=== PATIENT | male | born 1935 | race Caucasian/White ===

== ENCOUNTER 2022-08-13 09:24 | Emergency (ER) | payer MEDICARE, MEDICAID ==
[~2022-08-13] VITALS: Ht 167.6 cm; Wt 90.0 kg
[2022-08-13 09:46] VITALS: BP 150/71
[2022-08-13] MEDS ORDERED: ACET-2708 MT (12:12)
[2022-08-13] MEDS ORDERED: KETOROLAC 30MG/ML VIAL IM ONE (12:15)
== END 2022-08-13 12:30 | disposition home or self-care (01) ==
LOC: ER 09:24
DX: S52.92XA Unspecified fracture of left forearm, initial encounter for closed fracture (principal); I10 Essential (primary) hypertension; W01.0XXA Fall on same level from slipping, tripping and stumbling without subsequent striking against object, initial encounter; Y93.89 Activity, other specified; Y92.9 Unspecified place or not applicable
CPT/HCPCS: 29105; 96372; 99283; J1885

== ENCOUNTER 2025-10-18 22:16 | Inpatient (IN) | payer MEDICARE, MEDICAID ==
[~2025-10-18] VITALS: Ht 172.7 cm; Wt 113.4 kg
[~2025-10-18 22:16] MED LIST: ACET-2708 MT; ETOMIDATE 2MG/ML 10ML VIAL IV ONE
[2025-10-18] MEDS: ETOMIDATE 2MG/ML 10ML VIAL IV ONE (22:22)
[2025-10-18] MEDS: ROCURONIUM BROMIDE 10MG/ML VIAL 5ML IV ONE (22:24)
[2025-10-18] MEDS ORDERED: FENTANYL 2500MCG/250ML PMX 250 ML IV SCH (22:30)
[2025-10-18 22:31] VITALS: PULSE 98; RESP 40; O2SAT 98
[2025-10-18] MEDS: NOREPINEPHRINE 8MG/250ML PMX 250 ML IV PRN (22:39)
[2025-10-18] MEDS: PROPOFOL 10MG/ML 100ML 100 ML IV SCH (22:51)
[2025-10-18] MEDS: FENTANYL 2500MCG/250ML PMX 250 ML IV PRN (22:53)
[2025-10-18 23:05] LABS: BG BASE EXCESS -2.5 mmol/L (-2.0-3.0); BG CARBOXYHEMOGLOBIN 0.7 % (0.5-1.5); BG DEOXYHEMOGLOBIN 0.1 % (0.0-5.0); BG FRACTION INSPIRED OXYGEN 100; BG HCO3 ACT 24.3 mmol/L (21.0-28.0); BG METHEMOGLOBIN 0.1 % (0.5-1.5); BG OXYGEN SATURATION 99.9 % (94.0-98.0); BG OXYHEMOGLOBIN 99.1 % (94.0-98.0); BG PCO2 49.6 mmHg (35.0-48.0); BG PEEP (cmH2O) 5.0 cmH2O; BG PH 7.308 (7.350-7.450); BG PO2 322.8 mmHg (83.0-108.0); BG SAMPLE SITE LEFT RADIAL; BG TIDAL VOLUME(mL) 475.0 mL; BG TOTAL HEMOGLOBIN 15.0 g/dL (13.5-17.5); BG VENT MODE VENT - AC; BG VENT RATE 22.0 set
[2025-10-18 23:20] LABS: BASOPHILS % 0.6 % (0.0-2.0); CREATININE 2.0 mg/dL (0.6-1.3); EOSINOPHILS % 5.9 % (0.0-5.0); HEMATOCRIT. 41.6 % (42.0-52.0); HEMOGLOBIN. 13.7 g/dL (14.0-18.0); LYMPHOCYTES % 19.2 % (20.0-50.0); MEAN PLATELET VOLUME 9.6 fl (7.4-10.4); MONOCYTES % 9.3 % (2.0-8.0); NEUTROPHILS % 65.0 % (40.0-76.0); PLATELET 164 x1000/uL (130-400); RED BLOOD CELL COUNT 4.06 mill/uL (4.7-6.1); RED CELL DISTRIBUTION WIDTH 13.8 % (11.6-14.6)
[2025-10-18 23:21] LABS: ETHANOL BLOOD < 10 mg/dL (<10); UREA NITROGEN BLOOD 17 mg/dL (9-23)
[2025-10-18] MEDS: CLOPIDOGREL 75MG TABLET PO ONE (23:30)
[2025-10-18] MEDS: ASPIRIN 81MG TABLET PO ONE (23:30)
[2025-10-19] VITALS (87 sets, daily range): BP systolic 75–173; BP diastolic 40–70; PULSE 70–101; RESP 17–38; TEMP 36.5–38.1; O2SAT 90–100
[2025-10-19] MEDS ORDERED: ONDANSETRON HCL 4MG/2ML INJ IV PRN ×2 (00:15→01:15)
[2025-10-19] MEDS: SODIUM CHLORIDE 0.9% (SEPSIS BOLUS) IV ONE (00:37)
[2025-10-19] MEDS: PIPERACILLIN/TAZO 3.375G/50ML 50 ML IV ONE (00:37)
[2025-10-19] MEDS ORDERED: MAGNESIUM/ALUMINUM HYDROXIDE/SIMETHICONE 30ML UDC PO PRN (01:15)
[2025-10-19] MEDS ORDERED: NOREPINEPHRINE 8 MG in DEXT 5% WATER 242 ML IV PRN (01:15)
[2025-10-19] MEDS ORDERED: DOCUSATE SODIUM 100MG CAPSULE PO PRN (01:15)
[2025-10-19] MEDS ORDERED: GUAIFENESIN 200MG/10ML SUGAR FREE UDC PO PRN (01:15)
[2025-10-19] MEDS: VANCOMYCIN 1G PREMIX 200 ML IV ONE (01:39)
[2025-10-19] MEDS ORDERED: DEXTROSE 50% WATER 50ML SYRINGE IV PRN ×2 (02:15→17:45)
[2025-10-19] MEDS ORDERED: CEFTRIAXONE 2GM/50ML 50 ML IV SCH (03:00)
[2025-10-19] MEDS: DEXT 5%/0.45% NACL 1000ML 1,000 ML IV SCH (03:15)
[2025-10-19] MEDS: DOXYCYCLINE 100MG/100ML 100 ML IV SCH (03:16)
[2025-10-19] MEDS: CEFTRIAXONE 2GM/50ML 50 ML IV SCH (03:17)
[2025-10-19] MEDS: MAGNESIUM 1 G PREMIX 100 ML IV NR (03:20)
[2025-10-19] MEDS ORDERED: BUDESONIDE 0.5MG/2ML NEB HHN SCH (05:45)
[2025-10-19] MEDS: BLOOD SUGAR DIAGNOSTIC STRIP TEST SCH (06:00)
[2025-10-19] MEDS: METHYLPREDNISOLONE SOD SUCC 40MG/ML (ACT-O-VIAL) IV SCH (06:33)
[2025-10-19] MEDS: IOHEXOL-350 100 ML BOTTLE ONE (07:14)
[2025-10-19] MEDS: PROPOFOL 10MG/ML 100ML 100 ML IV PRN (07:28)
[2025-10-19 07:34] LABS: TROPONIN I HIGH SENSITIVITY 16 ng/L (3.0-53)
[2025-10-19] MEDS: BUDESONIDE 0.5MG/2ML NEB HHN SCH (08:24)
[2025-10-19 08:30] LABS: CREATINE KINASE MB FRACTION 0.6 ng/mL (0.5-3.6); PHOSPHORUS 3.2 mg/dL (2.5-4.9)
[2025-10-19 08:33] LABS: FOLIC ACID (FOLATE) SERUM 3.75 ng/mL (>5.38)
[2025-10-19 08:34] LABS: VITAMIN B12 SERUM 224 pg/mL (211-911)
[2025-10-19] MEDS: ENOXAPARIN 30MG/0.3ML SYR SUBCUT SCH (08:45)
[2025-10-19] MEDS: PANTOPRAZOLE SODIUM 40 MG/VIAL IV SCH (08:45)
[2025-10-19] MEDS: ASPIRIN 81MG TABLET PO SCH (08:46)
[2025-10-19] MEDS ORDERED: IPRA3AMP9 HHN (09:57)
[2025-10-19 10:03] LABS: INR 1.0
[2025-10-19] MEDS ORDERED: AMLO5TAB88 PO (10:33)
[2025-10-19] MEDS ORDERED: ASPI-1406 PO (10:33)
[2025-10-19] MEDS ORDERED: ICOS1CAP MT (10:33)
[2025-10-19] MEDS ORDERED: DIPH25TA23 MT (10:33)
[2025-10-19] MEDS ORDERED: TAMS-54 MT (10:33)
[2025-10-19] MEDS ORDERED: ALBU90AE INH (10:33)
[2025-10-19 12:43] LABS: CLARITY URINE CLEAR (CLEAR); COLOR URINE YELLOW (YELLOW); GLUCOSE URINE NEGATIVE (NEGATIVE); KETONES URINE NEGATIVE (NEGATIVE); LEUKOCYTE ESTERASE URINE 1+ (NEGATIVE); NITRITE URINE NEGATIVE (NEGATIVE); OCCULT BLOOD URINE 2+ (NEGATIVE); PH URINE 5.5 (4.5-8.0); PROTEIN URINE TRACE (NEGATIVE); SPECIFIC GRAVITY URINE 1.040 (1.005-1.030); UROBILINOGEN URINE 1.0 E.U./dL (0.2-1.0)
[2025-10-19 13:01] LABS: *AMPHETAMINES SCREEN URINE NEGATIVE (NEGATIVE)
[2025-10-19 13:02] LABS: *BARBITURATES SCREEN URINE NEGATIVE (NEGATIVE); *BENZODIAZEPINES SCREEN URINE NEGATIVE (NEGATIVE); *COCAINE SCREEN URINE NEGATIVE (NEGATIVE); CANNABINOID URINE SCREEN NEGATIVE (NEGATIVE); ECSTASY MDMA SCREEN URINE NEGATIVE (NEGATIVE); METHADONE URINE SCREEN NEGATIVE (NEGATIVE); OPIATES URINE SCREEN NEGATIVE (NEGATIVE); PHENCYCLIDINE URINE SCREEN NEGATIVE (NEGATIVE)
[2025-10-19 13:24] LABS: COARSE GRANULAR CASTS URINE 0-5 /lpf; HYALINE CASTS URINE 0-5 /lpf
[2025-10-19 13:25] LABS: WBC URINE 25-50 /hpf (0-2)
[2025-10-19 13:26] LABS: BACTERIA URINE 4+; RBC URINE 50-100 /hpf (0-2); SQUAMOUS EPITHELIAL CELL URINE FEW /lpf (RARE/1+)
[2025-10-19] MEDS: NOREPINEPHRINE 8MG/250ML PMX 250 ML IV PRN (13:39)
[2025-10-19] MEDS: LACTATED RINGERS 500 ML IV ONE ×2 (13:52→18:05)
[2025-10-19] MEDS: AZITHROMYCIN 500MG/250ML 250 ML IV SCH (16:14)
[2025-10-19] MEDS: FOLIC ACID 1 MG in SODIUM CHLORIDE 0.9% 500 ML IV ONE (16:14)
[2025-10-19 17:30] LABS: TROPONIN I HIGH SENSITIVITY 9 ng/L (3.0-53)
[2025-10-19 17:31] LABS: CREATININE 2.5 mg/dL (0.6-1.3)
[2025-10-19 17:32] LABS: CREATINE KINASE MB FRACTION 0.8 ng/mL (0.5-3.6); UREA NITROGEN BLOOD 19 mg/dL (9-23)
[2025-10-19 17:33] LABS: ASPARTATE AMINOTRANSFERASE 19 IU/L (<34)
[2025-10-19 17:34] LABS: BILIRUBIN DIRECT 0.7 mg/dL (<=3.0); BILIRUBIN TOTAL 1.1 mg/dL (0.1-1.0); PROTEIN TOTAL 6.0 g/dL (6.0-8.3)
[2025-10-19] MEDS ORDERED: DOXYCYCLINE 100MG/100ML 100 ML IV SCH (18:00)
[2025-10-19] MEDS: INSULIN LISPRO 100 UNITS/ML SUBCUT SCH (18:01)
[2025-10-19] MEDS: ACETAMINOPHEN 325MG TABLET PO PRN (20:15)
[2025-10-20] VITALS (99 sets, daily range): BP systolic 72–136; BP diastolic 37–69; PULSE 64–89; RESP 18–30; TEMP 36.7–37.4; O2SAT 94–100
[2025-10-20] MEDS: INSULIN LISPRO 100 UNITS/ML SUBCUT SCH (00:10)
[2025-10-20] MEDS: CEFTRIAXONE 2GM/50ML 50 ML IV SCH (00:10)
[2025-10-20 08:03] LABS: HEMATOCRIT. 39.8 % (42.0-52.0); HEMOGLOBIN. 13.2 g/dL (14.0-18.0); MEAN PLATELET VOLUME 10.0 fl (7.4-10.4); PLATELET 191 x1000/uL (130-400); RED BLOOD CELL COUNT 3.89 mill/uL (4.7-6.1); RED CELL DISTRIBUTION WIDTH 14.3 % (11.6-14.6)
[2025-10-20 08:22] LABS: T4 FREE 1.36 ng/dL (0.89-1.76)
[2025-10-20 08:25] LABS: CREATININE 2.2 mg/dL (0.6-1.3); TRIGLYCERIDE 94 mg/dL (0-150); UREA NITROGEN BLOOD 18 mg/dL (9-23)
[2025-10-20 08:26] LABS: LDL CHOLESTEROL 58 mg/dL (5-100)
[2025-10-20 08:30] LABS: ASPARTATE AMINOTRANSFERASE 21 IU/L (<34); BILIRUBIN DIRECT 0.4 mg/dL (<=3.0); BILIRUBIN TOTAL 0.6 mg/dL (0.1-1.0); PROTEIN TOTAL 5.7 g/dL (6.0-8.3)
[2025-10-20] MEDS: FOLIC ACID 1MG TABLET PO SCH (08:56)
[2025-10-20 10:07] LABS: BG BASE EXCESS -6.4 mmol/L (-2.0-3.0); BG CARBOXYHEMOGLOBIN 1.3 % (0.5-1.5); BG DEOXYHEMOGLOBIN 6.5 % (0.0-5.0); BG FRACTION INSPIRED OXYGEN 40; BG HCO3 ACT 19.9 mmol/L (21.0-28.0); BG METHEMOGLOBIN 0.2 % (0.5-1.5); BG OXYGEN SATURATION 93.4 % (94.0-98.0); BG OXYHEMOGLOBIN 92.0 % (94.0-98.0); BG PCO2 42.6 mmHg (35.0-48.0); BG PEEP (cmH2O) 5.0 cmH2O; BG PH 7.288 (7.350-7.450); BG PO2 63.7 mmHg (83.0-108.0); BG SAMPLE SITE RIGHT RADIAL; BG TIDAL VOLUME(mL) 475.0 mL; BG TOTAL HEMOGLOBIN 14.3 g/dL (13.5-17.5); BG VENT MODE VENT - AC; BG VENT RATE 20.0 set
[2025-10-20] MEDS: SODIUM BICARBONATE 8.4% 50MEQ/50ML SYR IV SCH (13:13)
[2025-10-20] MEDS ORDERED: DEXT 5%/LACTATED RINGERS 1,000 ML IV SCH (15:45)
[2025-10-20] MEDS: DEXT 5%/0.9% NACL 1,000 ML IV SCH (16:00)
[2025-10-20] MEDS ORDERED: VASOPRESSIN 20 UNIT in SODIUM CHLORIDE 0.9% 99 ML IV PRN (16:00)
[2025-10-20] MEDS: ALBUTEROL (0.5%) 2.5MG/0.5ML NEB HHN SCH (16:00)
[2025-10-20] MEDS: ALBUMIN HUMAN 12.5G/250ML (5%) IV SCH (17:09)
[2025-10-20] MEDS: SODIUM ZIRCONIUM CYCLOSILICATE 10GM/PACKET PO SCH (17:10)
[2025-10-20 17:29] LABS: BAND% 12.0 % (1.0-6.0); LYMPHOCYTES % MANUAL 4.0 % (20.0-50.0); MONOCYTES % MANUAL 3.0 % (2.0-8.0); NEUTROPHILS % MANUAL 81.0 % (45.0-75.0); PLATELET ESTIMATE NORMAL
[2025-10-20] MEDS: CALCIUM GLUCONATE 100MG/ML 10ML VIAL IV SCH (18:00)
[2025-10-20] MEDS: CEFEPIME 2GM/100ML 100 ML IV SCH (20:18)
[2025-10-20] MEDS: LACTULOSE 20G/30ML UDC PO SCH (21:58)
[2025-10-20] MEDS: PROPOFOL 10MG/ML 100ML 100 ML IV PRN (22:07)
[2025-10-21] VITALS (101 sets, daily range): BP systolic 77–126; BP diastolic 49–77; PULSE 51–112; RESP 18–27; TEMP 36.5–37.3; O2SAT 95–100
[2025-10-21] MEDS ORDERED: DEXMEDETOMIDINE 100 ML IV PRN (04:00)
[2025-10-21] MEDS: PROPOFOL 10MG/ML 100ML 100 ML IV PRN (05:47)
[2025-10-21 06:24] LABS: HEMATOCRIT. 35.0 % (42.0-52.0); HEMOGLOBIN. 11.2 g/dL (14.0-18.0); MEAN PLATELET VOLUME 9.7 fl (7.4-10.4); PLATELET 151 x1000/uL (130-400); RED BLOOD CELL COUNT 3.33 mill/uL (4.7-6.1); RED CELL DISTRIBUTION WIDTH 14.9 % (11.6-14.6)
[2025-10-21 06:55] LABS: CREATININE 1.7 mg/dL (0.6-1.3); TRIGLYCERIDE 144 mg/dL (0-150); TROPONIN I HIGH SENSITIVITY 6 ng/L (3.0-53); UREA NITROGEN BLOOD 24 mg/dL (9-23)
[2025-10-21 06:57] LABS: PHOSPHORUS 3.0 mg/dL (2.5-4.9)
[2025-10-21 10:09] LABS: BG BASE EXCESS -6.5 mmol/L (-2.0-3.0); BG CARBOXYHEMOGLOBIN 0.5 % (0.5-1.5); BG DEOXYHEMOGLOBIN 3.8 % (0.0-5.0); BG FRACTION INSPIRED OXYGEN 35; BG HCO3 ACT 19.3 mmol/L (21.0-28.0); BG METHEMOGLOBIN 0.3 % (0.5-1.5); BG OXYGEN SATURATION 96.2 % (94.0-98.0); BG OXYHEMOGLOBIN 95.4 % (94.0-98.0); BG PCO2 39.4 mmHg (35.0-48.0); BG PEEP (cmH2O) 5.0 cmH2O; BG PH 7.308 (7.350-7.450); BG PO2 82.3 mmHg (83.0-108.0); BG SAMPLE SITE RIGHT RADIAL; BG TIDAL VOLUME(mL) 425.0 mL; BG TOTAL HEMOGLOBIN 12.4 g/dL (13.5-17.5); BG VENT MODE VENT - AC; BG VENT RATE 20.0 set
[2025-10-21] MEDS: FUROSEMIDE 40MG/4ML VIAL IVP SCH (11:07)
[2025-10-21 11:41] LABS: BAND% 23.0 % (1.0-6.0); LYMPHOCYTES % MANUAL 5.0 % (20.0-50.0); MONOCYTES % MANUAL 3.0 % (2.0-8.0); NEUTROPHILS % MANUAL 69.0 % (45.0-75.0)
[2025-10-21 11:42] LABS: PLATELET ESTIMATE NORMAL
[2025-10-21] MEDS ORDERED: IPRATROPIUM/ALBUTEROL 0.5-3(2.5)MG/3ML NEB HHN PRN (13:15)
[2025-10-21] MEDS: IPRATROPIUM/ALBUTEROL 0.5-3(2.5)MG/3ML NEB HHN SCH (20:36)
[2025-10-22] VITALS (86 sets, daily range): BP systolic 109–165; BP diastolic 54–95; PULSE 70–109; RESP 19–29; TEMP 36.8–38; O2SAT 91–100
[2025-10-22 06:25] LABS: HEMATOCRIT. 37.2 % (42.0-52.0); HEMOGLOBIN. 11.6 g/dL (14.0-18.0); MEAN PLATELET VOLUME 10.3 fl (7.4-10.4); PLATELET 167 x1000/uL (130-400); RED BLOOD CELL COUNT 3.50 mill/uL (4.7-6.1); RED CELL DISTRIBUTION WIDTH 15.1 % (11.6-14.6)
[2025-10-22 06:41] LABS: CREATININE 1.5 mg/dL (0.6-1.3); UREA NITROGEN BLOOD 25.0 mg/dL (9-23)
[2025-10-22 10:08] LABS: BG BASE EXCESS -1.9 mmol/L (-2.0-3.0); BG CARBOXYHEMOGLOBIN 0.8 % (0.5-1.5); BG DEOXYHEMOGLOBIN 5.7 % (0.0-5.0); BG FRACTION INSPIRED OXYGEN 35; BG HCO3 ACT 23.5 mmol/L (21.0-28.0); BG METHEMOGLOBIN 0.3 % (0.5-1.5); BG OXYGEN SATURATION 94.2 % (94.0-98.0); BG OXYHEMOGLOBIN 93.2 % (94.0-98.0); BG PCO2 42.2 mmHg (35.0-48.0); BG PEEP (cmH2O) 5.0 cmH2O; BG PH 7.363 (7.350-7.450); BG PO2 67.6 mmHg (83.0-108.0); BG SAMPLE SITE RIGHT RADIAL; BG TIDAL VOLUME(mL) 475.0 mL; BG TOTAL HEMOGLOBIN 12.5 g/dL (13.5-17.5); BG VENT MODE VENT - AC; BG VENT RATE 22.0 set
[2025-10-22] MEDS: CEFEPIME 2GM/100ML 100 ML IV SCH (16:38)
[2025-10-22] MEDS: SODIUM CHLORIDE 0.45% 1,000 ML IV SCH (16:41)
[2025-10-22 17:27] LABS: LYMPHOCYTES % MANUAL 3.0 % (20.0-50.0); MONOCYTES % MANUAL 4.0 % (2.0-8.0); NEUTROPHILS % MANUAL 93.0 % (45.0-75.0); PLATELET ESTIMATE NORMAL
[2025-10-23] VITALS (95 sets, daily range): BP systolic 102–170; BP diastolic 57–91; PULSE 65–112; RESP 16–38; TEMP 36.2–37.2; O2SAT 91–100
[2025-10-23 07:25] LABS: BASOPHILS % 0.1 % (0.0-2.0); EOSINOPHILS % 0.0 % (0.0-5.0); HEMATOCRIT. 37.9 % (42.0-52.0); HEMOGLOBIN. 12.3 g/dL (14.0-18.0); LYMPHOCYTES % 8.3 % (20.0-50.0); MEAN PLATELET VOLUME 9.9 fl (7.4-10.4); MONOCYTES % 7.6 % (2.0-8.0); NEUTROPHILS % 84.0 % (40.0-76.0); PLATELET 160 x1000/uL (130-400); RED BLOOD CELL COUNT 3.69 mill/uL (4.7-6.1); RED CELL DISTRIBUTION WIDTH 13.7 % (11.6-14.6)
[2025-10-23 07:32] LABS: CREATININE 1.3 mg/dL (0.6-1.3)
[2025-10-23 07:33] LABS: UREA NITROGEN BLOOD 25.0 mg/dL (9-23)
[2025-10-23] MEDS: METHYLPREDNISOLONE SOD SUCC 40MG/ML (ACT-O-VIAL) IV SCH (08:29)
[2025-10-23 09:27] LABS: BG BASE EXCESS -0.2 mmol/L (-2.0-3.0); BG CARBOXYHEMOGLOBIN 1.2 % (0.5-1.5); BG DEOXYHEMOGLOBIN 4.6 % (0.0-5.0); BG FRACTION INSPIRED OXYGEN 35; BG HCO3 ACT 24.9 mmol/L (21.0-28.0); BG METHEMOGLOBIN 0.0 % (0.5-1.5); BG OXYGEN SATURATION 95.3 % (94.0-98.0); BG OXYHEMOGLOBIN 94.2 % (94.0-98.0); BG PCO2 42.5 mmHg (35.0-48.0); BG PEEP (cmH2O) 5.0 cmH2O; BG PH 7.386 (7.350-7.450); BG PO2 73.2 mmHg (83.0-108.0); BG SAMPLE SITE RIGHT RADIAL; BG TIDAL VOLUME(mL) 475.0 mL; BG TOTAL HEMOGLOBIN 12.3 g/dL (13.5-17.5); BG VENT MODE VENT - AC; BG VENT RATE 20.0 set
[2025-10-24] VITALS (71 sets, daily range): BP systolic 141–165; BP diastolic 64–84; PULSE 60–87; RESP 18–34; TEMP 36.7–37.2; O2SAT 96–100
[2025-10-24 07:07] LABS: HEMATOCRIT. 36.1 % (42.0-52.0); HEMOGLOBIN. 12.0 g/dL (14.0-18.0); MEAN PLATELET VOLUME 9.9 fl (7.4-10.4); PLATELET 149 x1000/uL (130-400); RED BLOOD CELL COUNT 3.55 mill/uL (4.7-6.1); RED CELL DISTRIBUTION WIDTH 13.8 % (11.6-14.6)
[2025-10-24 07:31] LABS: CREATININE 1.1 mg/dL (0.6-1.3)
[2025-10-24 07:32] LABS: UREA NITROGEN BLOOD 27 mg/dL (9-23)
[2025-10-24 09:26] LABS: BAND% 4.0 % (1.0-6.0); LYMPHOCYTES % MANUAL 15.0 % (20.0-50.0); MONOCYTES % MANUAL 5.0 % (2.0-8.0); NEUTROPHILS % MANUAL 76.0 % (45.0-75.0); PLATELET ESTIMATE NORMAL
[2025-10-24] MEDS: CLONIDINE 0.1MG TABLET PO PRN (12:12)
[2025-10-24] MEDS: APIXABAN 2.5 MG TABLET PO SCH (21:28)
[2025-10-24] MEDS: ATORVASTATIN CALCIUM 40MG TABLET PO SCH (21:28)
[2025-10-25] VITALS (73 sets, daily range): BP systolic 122–168; BP diastolic 55–84; PULSE 61–87; RESP 17–33; TEMP 37–38.3; O2SAT 95–100
[2025-10-25 07:03] LABS: HEMATOCRIT. 38.7 % (42.0-52.0); HEMOGLOBIN. 12.4 g/dL (14.0-18.0); MEAN PLATELET VOLUME 9.8 fl (7.4-10.4); PLATELET 161 x1000/uL (130-400); RED BLOOD CELL COUNT 3.76 mill/uL (4.7-6.1); RED CELL DISTRIBUTION WIDTH 13.7 % (11.6-14.6)
[2025-10-25 07:24] LABS: CREATININE 1.2 mg/dL (0.6-1.3)
[2025-10-25 07:25] LABS: LDL CHOLESTEROL 107.0 mg/dL (5-100); TRIGLYCERIDE 148.0 mg/dL (0-150); UREA NITROGEN BLOOD 25.0 mg/dL (9-23)
[2025-10-25] MEDS ORDERED: CLOPIDOGREL 75MG TABLET PO SCH (09:00)
[2025-10-25 09:10] LABS: BG BASE EXCESS 1.6 mmol/L (-2.0-3.0); BG CARBOXYHEMOGLOBIN 0.9 % (0.5-1.5); BG DEOXYHEMOGLOBIN 7.1 % (0.0-5.0); BG FRACTION INSPIRED OXYGEN 30; BG HCO3 ACT 26.9 mmol/L (21.0-28.0); BG METHEMOGLOBIN 0.0 % (0.5-1.5); BG OXYGEN SATURATION 92.8 % (94.0-98.0); BG OXYHEMOGLOBIN 92.0 % (94.0-98.0); BG PCO2 44.8 mmHg (35.0-48.0); BG PEEP (cmH2O) 5.0 cmH2O; BG PH 7.396 (7.350-7.450); BG PO2 64.1 mmHg (83.0-108.0); BG SAMPLE SITE RIGHT RADIAL; BG TIDAL VOLUME(mL) 475.0 mL; BG TOTAL HEMOGLOBIN 12.3 g/dL (13.5-17.5); BG VENT MODE VENT - SIMV; BG VENT RATE 12.0 set
[2025-10-25 12:36] LABS: BAND% 2.0 % (1.0-6.0); EOSINOPHILS % MANUAL 1.0 % (0.0-5.0); LYMPHOCYTES % MANUAL 15.0 % (20.0-50.0); MONOCYTES % MANUAL 10.0 % (2.0-8.0); NEUTROPHILS % MANUAL 72.0 % (45.0-75.0); NUCLEATED RED BLOOD CELLS 1 /100 WBC; PLATELET ESTIMATE NORMAL
[2025-10-26] VITALS (56 sets, daily range): BP systolic 131–162; BP diastolic 56–76; PULSE 67–86; RESP 16–31; TEMP 37.2–37.4; O2SAT 94–100
[2025-10-26 08:07] LABS: HEMATOCRIT. 41.7 % (42.0-52.0); HEMOGLOBIN. 13.7 g/dL (14.0-18.0); MEAN PLATELET VOLUME 10.0 fl (7.4-10.4); PLATELET 158 x1000/uL (130-400); RED BLOOD CELL COUNT 4.11 mill/uL (4.7-6.1); RED CELL DISTRIBUTION WIDTH 13.8 % (11.6-14.6)
[2025-10-26 08:16] LABS: CREATININE 1.1 mg/dL (0.6-1.3)
[2025-10-26 08:17] LABS: UREA NITROGEN BLOOD 33 mg/dL (9-23)
[2025-10-26] MEDS: RIFAXIMIN 550 MG TABLET PO SCH (11:17)
[2025-10-26] MEDS: SODIUM CHLORIDE 0.45% 1,000 ML IV SCH (11:18)
[2025-10-27] VITALS (72 sets, daily range): BP systolic 125–164; BP diastolic 53–81; PULSE 66–81; RESP 20–30; TEMP 37.1–37.5; O2SAT 91–100
[2025-10-27 06:47] LABS: HEMATOCRIT. 43.3 % (42.0-52.0); HEMOGLOBIN. 14.0 g/dL (14.0-18.0); MEAN PLATELET VOLUME 10.2 fl (7.4-10.4); PLATELET 159 x1000/uL (130-400); RED BLOOD CELL COUNT 4.22 mill/uL (4.7-6.1); RED CELL DISTRIBUTION WIDTH 13.6 % (11.6-14.6)
[2025-10-27 07:15] LABS: CREATININE 1.1 mg/dL (0.6-1.3); UREA NITROGEN BLOOD 24 mg/dL (9-23)
[2025-10-27 07:16] LABS: ASPARTATE AMINOTRANSFERASE 22 IU/L (<34); PROTEIN TOTAL 6.0 g/dL (6.0-8.3)
[2025-10-27 07:17] LABS: BILIRUBIN DIRECT 0.2 mg/dL (<=3.0)
[2025-10-27 07:18] LABS: BILIRUBIN TOTAL 0.7 mg/dL (0.1-1.0)
[2025-10-27 07:21] LABS: INR 1.0
[2025-10-27 07:51] LABS: HEPATITIS A AB IGM NEGATIVE (Negative)
[2025-10-27 07:52] LABS: HEPATITIS B CORE AB IGM NEGATIVE (Negative); HEPATITIS C AB NON REACTIVE (Neg) (Negative)
[2025-10-27 08:40] LABS: BG BASE EXCESS 1.6 mmol/L (-2.0-3.0); BG CARBOXYHEMOGLOBIN 1.0 % (0.5-1.5); BG DEOXYHEMOGLOBIN 5.9 % (0.0-5.0); BG FRACTION INSPIRED OXYGEN 30; BG HCO3 ACT 25.3 mmol/L (21.0-28.0); BG METHEMOGLOBIN 0.3 % (0.5-1.5); BG OXYGEN SATURATION 94.0 % (94.0-98.0); BG OXYHEMOGLOBIN 92.8 % (94.0-98.0); BG PCO2 36.7 mmHg (35.0-48.0); BG PEEP (cmH2O) 5.0 cmH2O; BG PH 7.456 (7.350-7.450); BG PO2 65.6 mmHg (83.0-108.0); BG SAMPLE SITE LEFT RADIAL; BG TIDAL VOLUME(mL) 450.0 mL; BG TOTAL HEMOGLOBIN 14.4 g/dL (13.5-17.5); BG TOTAL RESPIRATORY RATE 25 b/min; BG VENT MODE VENT - SIMV; BG VENT RATE 10.0 set
[2025-10-27 10:37] LABS: BAND% 3.0 % (1.0-6.0); EOSINOPHILS % MANUAL 2.0 % (0.0-5.0); LYMPHOCYTES % MANUAL 10.0 % (20.0-50.0); METAMYELOCYTES % 1.0 % (0-0); MONOCYTES % MANUAL 10.0 % (2.0-8.0); NEUTROPHILS % MANUAL 74.0 % (45.0-75.0); PLATELET ESTIMATE NORMAL
[2025-10-27 16:16] LABS: BAND% 4.0 % (1.0-6.0); EOSINOPHILS % MANUAL 1.0 % (0.0-5.0); LYMPHOCYTES % MANUAL 14.0 % (20.0-50.0); METAMYELOCYTES % 1.0 % (0-0); MONOCYTES % MANUAL 14.0 % (2.0-8.0); MYELOCYTES % 1.0 % (0-0); NEUTROPHILS % MANUAL 65.0 % (45.0-75.0); PLATELET ESTIMATE NORMAL
[2025-10-27] MEDS ORDERED: PROPOFOL 10MG/ML 100ML 100 ML IV PRN (22:15)
[2025-10-28] VITALS (66 sets, daily range): BP systolic 112–176; BP diastolic 48–70; PULSE 62–87; RESP 16–29; TEMP 36.7–37.7; O2SAT 91–100
[2025-10-28] MEDS: ACETAMINOPHEN 325MG TABLET PO PRN (00:40)
[2025-10-28 06:34] LABS: BASOPHILS % 0.3 % (0.0-2.0); EOSINOPHILS % 2.9 % (0.0-5.0); HEMATOCRIT. 40.4 % (42.0-52.0); HEMOGLOBIN. 13.2 g/dL (14.0-18.0); LYMPHOCYTES % 7.6 % (20.0-50.0); MEAN PLATELET VOLUME 10.4 fl (7.4-10.4); MONOCYTES % 5.4 % (2.0-8.0); NEUTROPHILS % 83.8 % (40.0-76.0); PLATELET 183 x1000/uL (130-400); RED BLOOD CELL COUNT 3.98 mill/uL (4.7-6.1); RED CELL DISTRIBUTION WIDTH 13.8 % (11.6-14.6)
[2025-10-28 06:53] LABS: CREATININE 1.2 mg/dL (0.6-1.3); UREA NITROGEN BLOOD 24.0 mg/dL (9-23)
[2025-10-28] MEDS: LACTULOSE 20G/30ML UDC PO SCH ×2 (09:00→09:19)
[2025-10-28 10:23] LABS: BG BASE EXCESS 0.0 mmol/L (-2.0-3.0); BG CARBOXYHEMOGLOBIN 0.9 % (0.5-1.5); BG DEOXYHEMOGLOBIN 3.0 % (0.0-5.0); BG FRACTION INSPIRED OXYGEN 30; BG HCO3 ACT 24.6 mmol/L (21.0-28.0); BG METHEMOGLOBIN 0.3 % (0.5-1.5); BG OXYGEN SATURATION 97.0 % (94.0-98.0); BG OXYHEMOGLOBIN 95.8 % (94.0-98.0); BG PCO2 39.9 mmHg (35.0-48.0); BG PEEP (cmH2O) 5.0 cmH2O; BG PH 7.407 (7.350-7.450); BG PO2 86.5 mmHg (83.0-108.0); BG SAMPLE SITE RIGHT RADIAL; BG TIDAL VOLUME(mL) 450.0 mL; BG TOTAL HEMOGLOBIN 16.0 g/dL (13.5-17.5); BG TOTAL RESPIRATORY RATE 27 b/min; BG VENT MODE VENT - SIMV; BG VENT RATE 20.0 set
[2025-10-29] VITALS (102 sets, daily range): BP systolic 98–173; BP diastolic 47–68; PULSE 64–89; RESP 10–32; TEMP 36.5–38.2; O2SAT 84–100
[2025-10-29 07:08] LABS: HEMATOCRIT. 39.6 % (42.0-52.0); HEMOGLOBIN. 12.6 g/dL (14.0-18.0); MEAN PLATELET VOLUME 10.3 fl (7.4-10.4); PLATELET 163 x1000/uL (130-400); RED BLOOD CELL COUNT 3.83 mill/uL (4.7-6.1); RED CELL DISTRIBUTION WIDTH 14.1 % (11.6-14.6)
[2025-10-29 07:13] LABS: CREATININE 1.2 mg/dL (0.6-1.3); UREA NITROGEN BLOOD 22.0 mg/dL (9-23)
[2025-10-29] MEDS: ACETAMINOPHEN 1000MG/100ML 100 ML IV NR (10:37)
[2025-10-29] MEDS ORDERED: LIDOCAINE HCL/EPINEPHRINE 1%-EPI 1:100,000 20ML VIAL ONE (11:05)
[2025-10-29 11:52] LABS: BAND% 9.0 % (1.0-6.0); EOSINOPHILS % MANUAL 3.0 % (0.0-5.0); LYMPHOCYTES % MANUAL 3.0 % (20.0-50.0); MONOCYTES % MANUAL 3.0 % (2.0-8.0); NEUTROPHILS % MANUAL 82.0 % (45.0-75.0); PLATELET ESTIMATE NORMAL
[2025-10-30] VITALS (21 sets, daily range): BP systolic 107–127; BP diastolic 48–60; PULSE 64–96; RESP 15–36; TEMP 36.7–37.9; O2SAT 95–100
[2025-10-30 06:57] LABS: HEMATOCRIT. 37.9 % (42.0-52.0); HEMOGLOBIN. 12.4 g/dL (14.0-18.0); MEAN PLATELET VOLUME 10.4 fl (7.4-10.4); PLATELET 162 x1000/uL (130-400); RED BLOOD CELL COUNT 3.69 mill/uL (4.7-6.1); RED CELL DISTRIBUTION WIDTH 13.8 % (11.6-14.6)
[2025-10-30 07:18] LABS: CREATININE 1.4 mg/dL (0.6-1.3)
[2025-10-30 07:19] LABS: UREA NITROGEN BLOOD 23.0 mg/dL (9-23)
[2025-10-30] MEDS: CYANOCOBALAMIN 1000MCG TABLET NG SCH (09:45)
[2025-10-31] VITALS (22 sets, daily range): BP systolic 111–152; BP diastolic 47–130; PULSE 66–83; RESP 24–62; TEMP 36.5–38.3; O2SAT 94–99
[2025-10-31 04:34] LABS: INR 1.0
[2025-10-31 04:44] LABS: CREATININE 1.4 mg/dL (0.6-1.3)
[2025-10-31 04:45] LABS: UREA NITROGEN BLOOD 21 mg/dL (9-23)
[2025-10-31 04:47] LABS: PHOSPHORUS 2.0 mg/dL (2.5-4.9)
[2025-10-31 05:01] LABS: BASOPHILS % 0.2 % (0.0-2.0); EOSINOPHILS % 1.2 % (0.0-5.0); HEMATOCRIT. 36.1 % (42.0-52.0); HEMOGLOBIN. 11.7 g/dL (14.0-18.0); LYMPHOCYTES % 8.6 % (20.0-50.0); MEAN PLATELET VOLUME 10.6 fl (7.4-10.4); MONOCYTES % 9.0 % (2.0-8.0); NEUTROPHILS % 81.0 % (40.0-76.0); PLATELET 164 x1000/uL (130-400); RED BLOOD CELL COUNT 3.53 mill/uL (4.7-6.1); RED CELL DISTRIBUTION WIDTH 13.7 % (11.6-14.6)
[2025-10-31] MEDS ORDERED: PROPOFOL 200MG/20ML VIAL IV ONE (11:31)
[2025-10-31 15:20] LABS: EOSINOPHILS % MANUAL 1.0 % (0.0-5.0); LYMPHOCYTES % MANUAL 8.0 % (20.0-50.0); MONOCYTES % MANUAL 10.0 % (2.0-8.0); NEUTROPHILS % MANUAL 81.0 % (45.0-75.0); PLATELET ESTIMATE NORMAL
[2025-10-31] MEDS: SODIUM PHOSPHATE 15 MMOL in DEXT 5% WATER 245 ML IV SCH (17:00)
== END 2025-10-31 20:50 | DRG 4 ==
LOC: ER 22:16 → CVICU 10-19 00:22 → EDBEDREQ 10-19 00:25 → ENRESERV 10-19 01:39 → 5EST 10-30 00:11
PROVIDERS: ADMIT Hospitalist; ATTEND Hospitalist
PROC: 5A1955Z Respiratory Ventilation, Greater than 96 Consecutive Hours (ICD-10-PCS; principal; 2025-10-18)
PROC: 0BH17EZ Insertion of Endotracheal Airway into Trachea, Via Natural or Artificial Opening (ICD-10-PCS; 2025-10-18)
PROC: 0B110F4 Bypass Trachea to Cutaneous with Tracheostomy Device, Open Approach (ICD-10-PCS; 2025-10-29)
PROC: 0DH63UZ Insertion of Feeding Device into Stomach, Percutaneous Approach (ICD-10-PCS; 2025-10-31)
DX: A41.51 Sepsis due to Escherichia coli [E. coli] (principal); J69.0 Pneumonitis due to inhalation of food and vomit; R65.21 Severe sepsis with septic shock; J96.21 Acute and chronic respiratory failure with hypoxia; J96.22 Acute and chronic respiratory failure with hypercapnia; G93.41 Metabolic encephalopathy; I63.89 Other cerebral infarction; E72.20 Disorder of urea cycle metabolism, unspecified; D53.1 Other megaloblastic anemias, not elsewhere classified; Z99.11 Dependence on respirator [ventilator] status; N39.0 Urinary tract infection, site not specified; N17.9 Acute kidney failure, unspecified; I27.20 Pulmonary hypertension, unspecified; E11.65 Type 2 diabetes mellitus with hyperglycemia; K76.0 Fatty (change of) liver, not elsewhere classified; N18.9 Chronic kidney disease, unspecified; I12.9 Hypertensive chronic kidney disease with stage 1 through stage 4 chronic kidney disease, or unspecified chronic kidney disease; I36.1 Nonrheumatic tricuspid (valve) insufficiency; J44.9 Chronic obstructive pulmonary disease, unspecified; E87.29 Other acidosis; I10 Essential (primary) hypertension; E87.5 Hyperkalemia; I48.0 Paroxysmal atrial fibrillation; J84.10 Pulmonary fibrosis, unspecified; I49.1 Atrial premature depolarization; E53.8 Deficiency of other specified B group vitamins; K80.20 Calculus of gallbladder without cholecystitis without obstruction; R13.12 Dysphagia, oropharyngeal phase; R31.29 Other microscopic hematuria; R16.2 Hepatomegaly with splenomegaly, not elsewhere classified; R91.1 Solitary pulmonary nodule; E78.5 Hyperlipidemia, unspecified; E80.6 Other disorders of bilirubin metabolism; Z74.01 Bed confinement status; Z79.82 Long term (current) use of aspirin; Z86.16 Personal history of COVID-19; Z86.73 Personal history of transient ischemic attack (TIA), and cerebral infarction without residual deficits; Z87.01 Personal history of pneumonia (recurrent); Z87.891 Personal history of nicotine dependence
CPT/HCPCS: 31500; 31720; 36415; 36600; 70551; 71045; 71275; 76700; 80048; 80061; 80076; 80305; 80320; 81003; 82040; 82140; 82270; 82375; 82553; 82607; 82746; 82805; 82962; 83036; 83605; 83735; 83880; 84100; 84145; 84439; 84443; 84478; 84484; 85025; 85651; 86705; 86709; 87070; 87077; 87186; 87340; 92950; 93005; 93306; 93970; 94002; 94003; 94070; 94640; 94664; 98960; 99291; 99292; A4606; J0456; J0612; J0690; J0692; J0696; J1650; J1815; J1938; J2004; J2405; J2470; J2543; J2704; J2919; J3010; J3373; J3475; J3490; J7030; J7040; J7042; J7060; J7626; P9041; Q9967; A4217; G0480; J0131